=== PATIENT | female | born 1960 | race Caucasian/White ===

== ENCOUNTER → 2017-09-07 | Outpatient (CLI) | payer OTHER | END | disposition home or self-care (01) | LOC: MAMMO 14:27 | DX: Z12.31 Encounter for screening mammogram for malignant neoplasm of breast (principal); N63.21 Unspecified lump in the left breast, upper outer quadrant | CPT/HCPCS: 77067 ==

== ENCOUNTER → 2017-09-21 | Outpatient (CLI) | payer OTHER | END | disposition home or self-care (01) | LOC: MAMMO 13:26 | DX: N63.20 Unspecified lump in the left breast, unspecified quadrant (principal) | CPT/HCPCS: 76641; 77065 ==

== ENCOUNTER → 2017-10-15 | Day surgery (SDC) | payer OTHER ==
[~2017-10-15] MED LIST: FERRIC SUBSULFATE 8 ML SOL.W.APPL TP; HYDROmorphone 2 MG/ML VIAL IV; LIDOCAINE 1% PF 2 ML VIAL. ID; MORPHINE SULFATE 4 MG/ML DISP.SYRIN. IV; ONDANSETRON PF 4 MG/2 ML VIAL. IV; PROCHLORPERAZINE 10 MG/2 ML VIAL. IV; SEVOFLURANE 16 TO 30 MINUTES. IH; fentaNYL PF VIAL 100 MCG/2 ML VIAL IV
[2017-10-15] MEDS: IV RINGERS,LACTATED 1000ML 1,000 ML IV (09:20)
[2017-10-15] MEDS: LIDOCAINE 1%/EPI 1:100,000 20 ML VIAL. (10:49)
== END | disposition home or self-care (01) ==
LOC: SURG 08:43
DX: N87.1 Moderate cervical dysplasia (principal); E11.9 Type 2 diabetes mellitus without complications; I11.9 Hypertensive heart disease without heart failure; E66.9 Obesity, unspecified; Z98.890 Other specified postprocedural states; Z88.0 Allergy status to penicillin; Z88.2 Allergy status to sulfonamides; Z83.3 Family history of diabetes mellitus
CPT/HCPCS: 57520; J3490

== ENCOUNTER → 2018-03-10 | Outpatient (CLI) | payer OTHER ==
[2017-10-15 11:58] VITALS: BP 135/78
[~2018-03-10] MED LIST changes: -FERRIC SUBSULFATE 8 ML SOL.W.APPL TP; +HYDR12.53 PO; -HYDROmorphone 2 MG/ML VIAL IV; +IBUP-1007 PO; -LIDOCAINE 1% PF 2 ML VIAL. ID; +LORA10TA3 PO; -MORPHINE SULFATE 4 MG/ML DISP.SYRIN. IV; -ONDANSETRON PF 4 MG/2 ML VIAL. IV; +OXYC-323 PO; -PROCHLORPERAZINE 10 MG/2 ML VIAL. IV; +RANI150C PO; -SEVOFLURANE 16 TO 30 MINUTES. IH; -fentaNYL PF VIAL 100 MCG/2 ML VIAL IV
--- NOTE | 2018-03-10 12:51 | RAD ---
Left breast ultrasound, 03/10/2018: History: Follow-up breast nodule A targeted ultrasound exam of the left breast was performed at the 3:00 location were a small nodule was noted on the 09/21/2017 exam. Again noted is a small elongated hypoechoic nodule measuring approximately 6 x 5 x 2 mm. Its margins are smooth. It is wider than tall. It is of similar size when compared to the previous study. An intramammary lymph node is again suspected. IMPRESSION: Stable small benign-appearing left breast nodule. Bilateral mammography in 6 months is suggested. BI-RADS 3-probably benign findings
== END | disposition home or self-care (01) ==
LOC: US 12:23
PROVIDERS: ATTEND Family Medicine
DX: N63.20 Unspecified lump in the left breast, unspecified quadrant (principal); I10 Essential (primary) hypertension; E11.9 Type 2 diabetes mellitus without complications; Z87.891 Personal history of nicotine dependence
CPT/HCPCS: 76641

== ENCOUNTER → 2018-10-19 | Outpatient (CLI) | payer OTHER ==
[2017-10-15 11:58] VITALS: BP 135/78
[~2018-10-19] MED LIST changes: +FERR-36 PO; -HYDR12.53 PO; +HYDR12.575 PO; +OMEP20CA10 PO; -OXYC-323 PO; +OXYC1TAB15 PO
--- NOTE | 2018-10-19 13:58 | RAD ---
DATE: 10/19/2018 EXAM: DIGITAL DIAGNOSTIC BILATERAL HISTORY: Abnormal mammogram COMPARISON: 09/07/2017 mammographic exam, 09/21/2017 left lateral diagnostic mammogram, left breast ultrasound This study was interpreted with the benefit of Computerized Aided Detection (CAD). Breast Density: SCATTERED The breast parenchyma shows scattered fibroglandular densities. Breast parenchyma level B. FINDINGS: Left upper outer breast mass previously described which has the appearance of an intramammary lymph node has remained stable. No new calcifications. No masses or distortion. Benign appearing vascular calcifications are present. IMPRESSION: Benign findings. BI-RADS CATEGORY: 1 NEGATIVE RECOMMENDED FOLLOW-UP: 12M 12 MONTH FOLLOW-UP PQRS compliance statement: Patient information was entered into a reminder system with a target due date in one year for the next mammogram. Mammography is a sensitive method for finding small breast cancers, but it does not detect them all and is not a substitute for careful clinical examination. A negative mammogram does not negate a clinically suspicious finding and should not result in delay in biopsying a clinically suspicious abnormality. "Our facility is accredited by the [employer] Mammography Program."
== END | disposition home or self-care (01) ==
LOC: MAMMO 13:21
PROVIDERS: ATTEND Family Medicine
DX: N63.0 Unspecified lump in unspecified breast (principal)
CPT/HCPCS: 77066

== ENCOUNTER → 2018-12-20 | Day surgery (SDC) | payer OTHER ==
[~2018-12-20] MED LIST changes: +IV RINGERS,LACTATED 1000ML 1,000 ML IV SCH; +PROPOFOL 40 ML IV ONE
--- NOTE | 2018-12-20 13:41 | PDOC4 ---
PROCEDURE Procedure EGD, biopsies/colonoscopy with biopsies Indication: OSCAR Meds: per anesthesia Findings: E--Shabrianki's ring at GEJ/dilated wit 54F camilo w/o resistance. G--HH,moderate. Mild striped antral erythema, biopsied. D--Normal to 3rd portion; biopsies second portion. ZARIA--normal Colonoscoped advanced to cecum. Mucosa normal. No diverticula appreciated. 4mm polyp distal sigmoid biopsied off. Second 5mm polyp, mid-transverse, biopsied off. Exam otherwise normal. brenden. well. IMP: charles's, dilated. HH Gastric erythema Colon polyps. REC: Continue current meds and diet. Await biopsies. F/u in 2 weeks. KRISTINA GEE MD Dec 20, 2018 13:41
[2018-12-20 14:20] VITALS: BP 141/74
--- NOTE | 2018-12-21 16:06 | PATHOLOGY ---
[facility] Accession Number: [id number] . 01 Material submitted: . PART A: duodenum - BIOPSY SECOND PORTION DUODENUM. Modifiers: second PART B: stomach - BIOPSY ANTRUM PART C: colon - BIOPSY DISTAL SIGMOID POLYP. Modifiers: distal, sigmoid PART D: colon - BIOPSY MID TRANSVERSE COLON POLYP. Modifiers: mid, transverse . 01 Clinical history: . Anemia, dysphagia . 02 Diagnosis: A. Duodenal biopsies, second portion duodenum: - No significant pathologic abnormalities. . B. Gastric biopsy, antrum: - Chronic gastritis, mild. . C. Colon biopsy, distal sigmoid polyp: - Hyperplastic polyp. . D. Colon biopsies, mid transverse colon polyp: - Tubular adenoma. (JPM:[facility] 12/21/2018) [facility]/12/21/2018 . 02 Comment: Sections of the second portion duodenum biopsy reveal segments of duodenal mucosa. Where best oriented, mucosal villi show no sprue-like changes or significant inflammatory changes. . Sections of the gastric biopsy reveal gastric antral and antral/body transition mucosa showing focal congestion and mild chronic inflammation. A properly controlled immunoperoxidase for Helicobacter is negative for Helicobacter organisms. . Sections of the distal sigmoid colon biopsy reveal a hyperplastic polyp. There are no adenomatous changes or evidence of malignancy. . Sections of the mid transverse colon biopsy reveal a tubular adenoma showing no high-grade dysplasia or evidence of malignancy. (JPM:[facility] 12/21/2018) . Special stain performed: Immunoperoxidase for Helicobacter on B1. . 02 Electronically signed: . Jersey Louis MD, Pathologist NPI- [id number] . 01 Gross description: . A. Received in formalin labeled "Anshu Colleen, BX second portion duodenum," are 2 segments of maki soft tissue measuring 0.9 x 0.3 x 0.3 cm in aggregate dimensions and ranging from 0.4 to 0.5 cm in maximum dimension. The specimen is submitted entirely in cassette A1. . B. Received in formalin labeled "Colleen Brasher, BX antrum," is a single segment of maki soft tissue measuring 0.6 cm in maximum dimension. The specimen is entirely submitted in cassette B1. . C. Received in formalin labeled "Colleen Brasher, BX distal sigmoid polyp," is a single segment of maki soft tissue measuring 0.5 cm in maximum dimension. The specimen is entirely submitted in cassette C1. . D. Received in formalin labeled "Cheryl Brasherna, mid transverse colon polyp BX," are 3 segments of maki soft tissue measuring 1.1 x 0.8 x 0.5 cm in aggregate dimensions and ranging from 0.3 to 0.5 cm in maximum dimension. The specimen is submitted entirely in cassette D1. ([facility]; 12/20/2018) TOB/TOB . 02 Pathologist provided ICD-10: K29.50, D12.3, K63.5 . 02 CPT . 475561, 469797, [id number], 228494, [id number] Specimen Comment: A courtesy copy of this report has been sent to Specimen Comment: [phone], . Specimen Comment: Report sent to / DR MCGUIRE Performed at: 01 [facility] [address] [facility] [address], [place] [id number] MD Ashwin Rocha MD Phone: [phone] Performed at: 02 [facility] [address] [place], [place] [id number] MD Jersey Louis MD Phone: [phone]
== END ==
LOC: ENDOS 11:44
PROVIDERS: ATTEND Internal Medicine Gastroenterology
DX: K29.50 Unspecified chronic gastritis without bleeding (principal); D12.3 Benign neoplasm of transverse colon; K63.5 Polyp of colon; K22.2 Esophageal obstruction; K44.9 Diaphragmatic hernia without obstruction or gangrene; Z88.1 Allergy status to other antibiotic agents; Z88.0 Allergy status to penicillin; Z87.39 Personal history of other diseases of the musculoskeletal system and connective tissue; Z98.890 Other specified postprocedural states
CPT/HCPCS: 43239; 43450; 45380; 88305; 88342; J2704

== ENCOUNTER → 2020-03-01 | Outpatient (CLI) | payer OTHER ==
[2018-12-20 14:20] VITALS: BP 141/74
[~2020-03-01] MED LIST changes: -IV RINGERS,LACTATED 1000ML 1,000 ML IV SCH; -OMEP20CA10 PO; +OMEP20CA16 PO; -PROPOFOL 40 ML IV ONE
--- NOTE | 2020-03-02 16:28 | RAD ---
EXAM: BILATERAL DIGITAL SCREENING MAMMOGRAPHY. HISTORY: Routine mammographic screening. TECHNIQUE: Bilateral full field digital images were obtained in CC and MLO projections. Computer-aided detection was applied. COMPARISON: 09/07/2017. COMPOSITION: C. The breasts are heterogeneously dense, which may obscure small masses. FINDINGS: There are no suspicious masses, microcalcifications or architectural distortion. The parenchymal pattern is stable. Scattered and vascular calcifications are benign. BI-RADS CATEGORY 2: Benign. RECOMMENDATION: 1. Routine screening mammography in one year. If mammography demonstrates dense breast tissue (heterogenously dense or extremely dense, category C or D), which could hide abnormalities, and if other risk factors for breast cancer have been identified, supplemental screening tests that may be suggested by the ordering physician may be of benefit. Dense breast tissue, in and of itself, is a relatively common condition. Therefore, this information is not provided to cause undue concern, but rather to raise awareness and to promote discussion with the referring physician regarding the presence of other risk factors, in addition to dense breast tissue. The results of this mammography examination is provided to the patient and referring physician. The patient should contact their referring physician if any questions or concerns exist regarding this report. PQRS compliance statement - Patient information was entered into a reminder system with a target due date for the next mammogram. "Our facility is accredited by the [employer] Mammography [employer]." Electronically signed by: Katherine Mars MD (03/02/2020 4:25 PM) [id number]
== END | disposition home or self-care (01) ==
LOC: MAMMO 12:30
PROVIDERS: ATTEND Family Medicine
DX: Z12.31 Encounter for screening mammogram for malignant neoplasm of breast (principal); N64.89 Other specified disorders of breast
CPT/HCPCS: 77067

== ENCOUNTER → 2020-03-30 | Outpatient (CLI) | payer OTHER ==
[2018-12-20 14:20] VITALS: BP 141/74
--- NOTE | 2020-03-30 23:19 | RAD ---
PELVIS ULTRASOUND History: Reason: PELVIC PAIN / Spl. Instructions: / History: Comparison: None. Technique: Grayscale and color Doppler imaging of the pelvis was performed using transabdominal and transvaginal technique. Findings: The uterus measures 7.6 x 5.0 x 3.9 cm. The endometrial stripe measures 6 mm. Bilateral ovaries not identified due to overlying structures. Multiloculated septated mass identified within the midline pelvis and right adnexa measures 6.5 x 12.0 x 10.0 cm. There is thickened septa and peripheral blood flow. IMPRESSION: 1. Large multiloculated septated cystic mass within the mid to right pelvis. Recommend correlation with prior imaging studies. MRI with and without contrast can further evaluate. 2. Borderline thickened endometrium, may relate to endometrial hyperplasia or endometrial carcinoma. Recommend further clinical evaluation and biopsy if indicated. Electronically signed by: Darnell Sahu DO (03/30/2020 11:16 PM) [facility]
== END | disposition home or self-care (01) ==
LOC: US 15:55
PROVIDERS: ATTEND Family Medicine
DX: R19.00 Intra-abdominal and pelvic swelling, mass and lump, unspecified site (principal); R10.2 Pelvic and perineal pain
CPT/HCPCS: 76856